=== PATIENT | male | born 1975 | race African-American/Black ===

== ENCOUNTER 2016-09-24 13:53 | Emergency (ER) | payer SELFPAY ==
[~2016-09-24] VITALS: Ht 180.3 cm; Wt 73.0 kg
[2016-09-24] MEDS ORDERED: TETANUS, DIPHTHERIA, PERTUSSIS VAC/PF 0.5ML (>7YR OLD) IM ONE (15:00)
[2016-09-24] MEDS ORDERED: KETOROLAC 30MG/ML VIAL IM ONE (15:00)
[2016-09-24] MEDS ORDERED: BACITRACIN ZINC OINT UDPKT TOP ONE (15:00)
[2016-09-24 16:59] VITALS: BP 132/94
== END 2016-09-24 17:09 | disposition home or self-care (01) ==
LOC: ER 14:11
DX: S01.81XA Laceration without foreign body of other part of head, initial encounter (principal); S00.83XA Contusion of other part of head, initial encounter; J45.909 Unspecified asthma, uncomplicated; Y99.8 Other external cause status; Y93.01 Activity, walking, marching and hiking; Y92.89 Other specified places as the place of occurrence of the external cause; Y04.2XXA Assault by strike against or bumped into by another person, initial encounter
CPT/HCPCS: 12011; 70450; 90471; 90715; 96372; 99284; J1885; Z7610

== ENCOUNTER 2017-03-06 04:40 | Emergency (ER) | payer SELFPAY ==
[~2017-03-06] VITALS: Ht 172.7 cm; Wt 65.0 kg
[2017-03-06] MEDS ORDERED: SODIUM CHLORIDE 0.9% 1,000 ML IV ONE ×2 (05:11→07:15)
[2017-03-06] MEDS ORDERED: DIPHENHYDRAMINE 50MG/ML VIAL IM STA (05:11)
[2017-03-06] MEDS ORDERED: LORAZEPAM 2MG/ML CPJ IV STA (05:11)
[2017-03-06] MEDS ORDERED: HALOPERIDOL LACTATE 5MG/ML VIAL IM STA (05:11)
[2017-03-06] MEDS ORDERED: HALOPERIDOL LACTATE 5MG/ML VIAL IM ONE ×2 (05:21→05:45)
[2017-03-06] MEDS ORDERED: LORAZEPAM 2MG/ML CPJ ONE (05:21)
[2017-03-06] MEDS ORDERED: DIPHENHYDRAMINE 50MG/ML VIAL ONE (05:22)
[2017-03-06] MEDS ORDERED: LORAZEPAM 2MG/ML CPJ IM ONE ×2 (05:45→07:15)
[2017-03-06 06:19] LABS: BASOPHILS % 0.8 % (0.0-2.0); EOSINOPHILS % 0.3 % (0.0-5.0); HEMOGLOBIN. 12.9 g/dL (14.0-18.0); LYMPHOCYTES % 8.8 % (20.0-50.0); MEAN CORPUSCULAR HEMOGLOBIN 30.3 pg (28.0-32.0); MEAN CORPUSCULAR VOLUME 89.4 fL (80.0-94.0); MONOCYTES % 7.5 % (2.0-8.0); NEUTROPHILS % 82.6 % (40.0-76.0); PLATELET 209 x1000/uL (130-400); RED BLOOD CELL COUNT 4.25 mill/uL (4.7-6.1); RED CELL DISTRIBUTION WIDTH 13.8 % (11.6-14.6)
[2017-03-06 06:22] LABS: CHLORIDE 109 mEq/L (98-107)
[2017-03-06 06:31] LABS: CARBON DIOXIDE 24 mEq/L (21-32); CREATINE KINASE 604 IU/L (39-308); ETHANOL BLOOD < 10 mg/dL
[2017-03-06 06:36] LABS: CLARITY URINE CLEAR (CLEAR); COLOR URINE YELLOW (YELLOW); GLUCOSE URINE NEGATIVE (NEGATIVE); KETONES URINE TRACE (NEGATIVE); LEUKOCYTE ESTERASE URINE NEGATIVE (NEGATIVE); NITRITE URINE NEGATIVE (NEGATIVE); OCCULT BLOOD URINE NEGATIVE (NEGATIVE); PROTEIN URINE NEGATIVE (NEGATIVE); SPECIFIC GRAVITY URINE 1.029 (1.005-1.030)
[2017-03-06 07:07] LABS: *AMPHETAMINES SCREEN URINE PRESUMTIVE POSITIVE (NEGATIVE); *BARBITURATES SCREEN URINE NEGATIVE (NEGATIVE); *BENZODIAZEPINES SCREEN URINE NEGATIVE (NEGATIVE); *COCAINE SCREEN URINE PRESUMTIVE POSITIVE (NEGATIVE); CANNABINOID URINE SCREEN PRESUMTIVE POSITIVE (NEGATIVE); METHADONE URINE SCREEN NEGATIVE (NEGATIVE); OPIATES URINE SCREEN NEGATIVE (NEGATIVE); PHENCYCLIDINE URINE SCREEN NEGATIVE (NEGATIVE)
[2017-03-06 16:18] VITALS: BP 144/81
== END 2017-03-06 17:56 | disposition home or self-care (01) ==
LOC: ER 04:40
DX: T43.621A Poisoning by amphetamines, accidental (unintentional), initial encounter (principal); T40.5X1A Poisoning by cocaine, accidental (unintentional), initial encounter; G93.40 Encephalopathy, unspecified; J45.909 Unspecified asthma, uncomplicated; Y90.0 Blood alcohol level of less than 20 mg/100 ml; Y92.89 Other specified places as the place of occurrence of the external cause
CPT/HCPCS: 36415; 71010; 80053; 80305; 80307; 80329; 81003; 82550; 85025; 93005; 96372; 96374; 99285; G0482; J1200; J1630; J2060; J7030; Z7610

== ENCOUNTER 2023-05-18 17:40 | Emergency (ER) | payer MEDICAID ==
[~2023-05-18] VITALS: Ht 177.8 cm; Wt 73.0 kg
[2023-05-18 17:42] VITALS: BP 143/87; PULSE 67; RESP 16; TEMP 98.3; O2SAT 97
[2023-05-18] MEDS ORDERED: IBUP-2029 MT (23:13)
== END 2023-05-19 | disposition home or self-care (01) ==
LOC: ER 17:40
DX: S52.501A Unspecified fracture of the lower end of right radius, initial encounter for closed fracture (principal); J45.909 Unspecified asthma, uncomplicated; F19.90 Other psychoactive substance use, unspecified, uncomplicated; X58.XXXA Exposure to other specified factors, initial encounter; Y93.89 Activity, other specified; Y92.89 Other specified places as the place of occurrence of the external cause; Y99.8 Other external cause status
CPT/HCPCS: 29125; 73130; 99283

== ENCOUNTER 2024-02-02 11:14 | Emergency (ER) | payer MEDICAID ==
[~2024-02-02] VITALS: Ht 180.3 cm; Wt 90.0 kg
[~2024-02-02 11:14] MED LIST: IBUP-2029 MT
[2024-02-02 11:21] VITALS: TEMP 98.8; O2SAT 100
[2024-02-02 14:50] LABS: BASOPHILS % 1.2 % (0.0-2.0); EOSINOPHILS % 12.6 % (0.0-5.0); HEMATOCRIT. 39.1 % (42.0-52.0); HEMOGLOBIN. 12.8 g/dL (14.0-18.0); LYMPHOCYTES % 22.3 % (20.0-50.0); MEAN CORPUSCULAR HGB CONC 32.7 g/dL (31.0-37.0); MEAN CORPUSCULAR VOLUME 85.9 fL (80.0-94.0); MEAN PLATELET VOLUME 7.8 fl (7.4-10.4); MONOCYTES % 9.9 % (2.0-8.0); PLATELET 345 x1000/uL (130-400); RED BLOOD CELL COUNT 4.56 mill/uL (4.7-6.1); RED CELL DISTRIBUTION WIDTH 14.1 % (11.6-14.6)
[2024-02-02 14:53] LABS: CHLORIDE 105 mEq/L (98-107); SODIUM 137 mEq/L (136-145)
[2024-02-02 14:54] LABS: CALCIUM 9.4 mg/dL (8.7-10.4); CARBON DIOXIDE 30 mEq/L (21-32)
[2024-02-02 14:59] LABS: CREATININE 0.9 mg/dL (0.6-1.3); GLUCOSE 103 mg/dL (70-105); UREA NITROGEN BLOOD 8 mg/dL (9-23)
[2024-02-02 15:01] LABS: ALANINE AMINOTRANSFERASE 38 IU/L (10-49); ASPARTATE AMINOTRANSFERASE 32 IU/L (<34); BILIRUBIN DIRECT 0.1 mg/dL (<=3.0); BILIRUBIN TOTAL 0.4 mg/dL (0.1-1.0); PROTEIN TOTAL 7.1 g/dL (6.0-8.3)
[2024-02-02] MEDS ORDERED: CEFTRIAXONE SODIUM 1G VIAL IM ONE (15:45)
[2024-02-02] MEDS ORDERED: DOXY100T2 MT (16:07)
[2024-02-02] MEDS ORDERED: PERM60CR4 TP (16:07)
[2024-02-02] MEDS: CEFTRIAXONE SODIUM 500MG VIAL IM NR (16:27)
[2024-02-02 16:54] VITALS: BP 126/77; PULSE 70; RESP 16; O2SAT 99
== END 2024-02-02 16:55 | disposition home or self-care (01) ==
LOC: ER 11:14
DX: A55 Chlamydial lymphogranuloma (venereum) (principal); B86 Scabies; J45.909 Unspecified asthma, uncomplicated; E11.9 Type 2 diabetes mellitus without complications
CPT/HCPCS: 99283; 80053; 85025; 36415; 96372; 80076; J0696